=== PATIENT | female | born 1945 | race Caucasian/White ===

== ENCOUNTER 2025-06-20 19:39 | Emergency (ER) | payer BC, MEDICARE, SELFPAY ==
[2025-06-20 19:41] VITALS: BP 139/69
[2025-06-20 22:10] VITALS: BP 142/82; BMI 25.8
--- NOTE | 2025-06-20 23:23 | ED.GENMED ---
History of Present Illness
General
Chief Complaint: Back Pain
Time Seen by Provider: 06/20/25 22:46
Nursing documentation reviewed up to this point in time: agreed with
History of Present Illness
History of Present Illness:
79-year-old female presents to the ER for further evaluation of low back pain which she states has been present since June 12. She denies any injury or trauma. She states that the pain is present over her right low back. No radiation to her
legs. She states that she works 5 days a week and cannot afford to miss any work. She states that she went to the ER at [facility] on for the symptoms and was told that she might have congestive heart failure and she had a compression
fracture in her spine. She has been taking her routine 15 mg oxycodone every 4 hours without any improvement in her symptoms. She has added some Tylenol for additional pain relief. Given her symptoms had failed to improved and she was now
visiting a friend in [place], she went to a hospital in [place] where she had x-ray and CT of her lower back. She was again told that she had compression fractures. She was not given any additional pain relievers at this point. She presents to
the ER today for an additional opinion on advice of a friend. She has not yet spoken with her family physician. She lives in the [facility] ([place], [place]). She denies any urinary discomforts. No loss of control of bowel or bladder. No genital anesthesia.
No weakness in her legs. No foot drop. She does see pain management chronically for her rheumatoid arthritis in her hands and knees. She states that her primary care physician writes for her oxycodone.
Review of Systems
Review of Systems
Allergies reviewed?: Yes
Phy Exam
Physical Exam
Physical Exam:
Patient is awake, alert, appears in no acute distress, head is NCAT, PERRL, EOMI mucous membranes moist, conjunctiva pink, heart regular rate and rhythm without murmurs or ectopy, lungs are clear to auscultation without wheezes rales or rhonchi, no
JVD, abdomen is soft and nontender on palpation, extremities without edema, back exam reveals no midline pain on palpation of thoracic or lumbar spine, pain is reproducible on palpation of right sacroiliac joint, no overlying skin change, no pain on
palpation of right piriformis or buttock , intact sensation to light touch symmetric bilateral lower extremities, 2+ DP pulses present symmetric GCS is 15
Course
Orders/Labs/Results
Orders:
Orders
06/20/25 23:23
Lidocaine [Lidocaine 4% Patch] 1 patch TOPICAL NOW STA
Apply Lidocaine patch(s) to:: R SI joint
Lumbar Spine, 2 or 3 View [CR Lumbar Spine 2 Or 3 Views] Urgent
Comment:
Reason For Exam: atraumatic pain
06/20/25 23:24
Oxycodone [Roxicodone] 15 mg PO NOW STA
Vital Signs
Initial and Last Documented VS:
Initial Vital Signs
Temp Pulse Resp BP Pulse Ox
98.0 F 78 14 139/69 93
06/20/25 19:41 06/20/25 19:41 06/20/25 19:41 06/20/25 19:41 06/20/25 19:41
Last Documented Vital Signs
Temp Pulse Resp BP Pulse Ox
97.9 F 80 20 145/83 98
06/21/25 00:23 06/21/25 00:23 06/21/25 00:23 06/21/25 00:23 06/21/25 02:38
MDM/Problems Addressed
Differential Diagnosis Includes:
Differential diagnosis to consider but not limited to sacroiliac dysfunction, compression fracture, muscle spasm along with other etiologies considered
Chronic conditions affecting care:
Advanced age, long-term anticoagulant, Chronic pain with long-term use of opiate
*Radiology
Radiology exam reviewed: preliminary read by ED provider (I independently viewed and interpreted x-rays of lumbar spine showing degenerative changes throughout, mild compression deformity noted at T12)
*Pulse Oximetry
SaO2: 96
Oxygen Mode of Delivery: Room air
Patient hypoxic: no
*Critical Care Note
Total Time (30-74mins, 75-104mins- exclusive of procedures): Not Applicable
Update Note
Update Note:
I reviewed PDMP. She does receive regular prescriptions from Dr. Guthrie for 180 tablets of 15 mg oxycodone, last filled on 06/10/2025.
I discussed with patient ABBIE seen on lumbar spine film, possible compression fracture. I discussed with patient benefit of following up with her primary care physician instead of going to different emergency departments given she has no red flag
symptoms at the current time. She was able to ambulate around the room and get herself to the bathroom without any assistance, with a steady gait. I discussed with patient discharge instructions, medication usage at home. She expressed
understanding of discharge plan and has no questions at the current time.
ED Attending Note
-
Portions of this chart may have been created with voice recognition software.� Occasional wrong word or��sound alike� substitutions may have occurred due to the inherent limitations of voice recognition software.
Discharge Plan
Departure
Patient Disposition: Home (Routine Discharge)
Date of Disposition: 06/21/25
Time of Disposition: 01:30
Patient with high blood pressure during this ER visit?: No
Discharge Problem:
Sacroiliac dysfunction
Instructions: Low Back Pain (DC)
Prescriptions:
No Action
oxycodone 15 mg Tablet
15 mg PO Q4H
B Complex-Vitamin B12
1 tab PO DAILY
gabapentin 100 mg Tablet
100 mg PO TID
Eliquis 5 mg Tablet
5 mg PO BID
Fosamax
1 dose PO WEEKLY
Rx Instructions:
on Monday
Trelegy Ellipta
1 inh inhalation DAILY
Vitamin D3
4 units PO AMHS
albuterol
2 inh inhalation Q4H PRN (Reason: sob)
diltiazem HCl
240 mg PO AMHS
diltiazem HCl
120 mg PO DAILY
Rx Instructions:
in the am
levothyroxine
75 mcg PO DAILY
Referrals:
Nirav Guthrie, DO [Family Provider]
Stand Alone Forms: Return to Work
Activity Restrictions/Additional Instructions:
Continue taking your current medications. Try using [id number] Salonpas or similar pain relieving patches as per package instructions to help for additional pain relief. Please follow-up with your primary care physician for further treatment.
Interventions
Interventions:
*Risk Screen - Suicide Last Done: 06/20/25 19:41
*General Assessment Last Done: 06/20/25 19:41
*Neglect/Abuse Screening Last Done: 06/20/25 19:41
*ED- Fall Risk Assessment Last Done: 06/21/25 02:40
*ED COVID-19 Vaccine History Last Done: 06/20/25 19:41
*ED Influenza Vaccine History Last Done: 06/20/25 19:41
*Nursing Disposition Last Done: 06/21/25 02:40
ED-Musculoskeletal Assessment Last Done: 06/20/25 22:12
Discharge Date and Time
Discharge Date/Time: 06/21/25 02:41
Print Language: KITTITIAN
[2025-06-20] MEDS: ROXICODONE 15 MG PO (23:32)
[2025-06-20] MEDS: LIDOCAINE 4% PATCH 1 PATCH TOPICAL (23:33)
[2025-06-21 00:23] VITALS: BP 145/83
== END 2025-06-21 02:41 | disposition home or self-care (01) ==
LOC: EMR 19:39
PROVIDERS: EMERGENCY PHYSICIAN Emergency Medicine; FAMILY PHYSICIAN Family Medicine
DX: M53.3 Sacrococcygeal disorders, not elsewhere classified (principal); G89.29 Other chronic pain; M54.50 Low back pain, unspecified; Z79.01 Long term (current) use of anticoagulants
CPT/HCPCS: 99283; 72100